=== PATIENT | male | born 1995 | race Caucasian/White ===

== ENCOUNTER 2023-11-12 08:06 | Day surgery (SDC) | payer OTHER ==
[~2023-11-12] VITALS: Ht 180.3 cm; Wt 84.8 kg
[2023-11-12 08:47] VITALS: O2SAT 97
[2023-11-12] MEDS ORDERED: MEPERIDINE 100 MG INJ. 100 MG/ML VIAL ONE (09:16)
[2023-11-12] MEDS ORDERED: MIDAZOLAM HCL 5 MG/5 ML VIAL ONE (09:16)
[2023-11-12] MEDS ORDERED: DIPHENHYDRAMINE INJ 50 MG/ML VIAL ONE (09:30)
[2023-11-12 14:50] VITALS: BP_SYST 107; PULSE 76; RESP 12
== END 2023-11-12 10:54 | disposition home or self-care (01) ==
LOC: SDS 08:06 → SMU 08:11 → SDS 10:54
PROVIDERS: ATTEND Internal Medicine Gastroenterology
DX: K62.5 Hemorrhage of anus and rectum (principal); K63.89 Other specified diseases of intestine; K64.8 Other hemorrhoids; R59.0 Localized enlarged lymph nodes
CPT/HCPCS: 45380; 88305; 99152; 99153; G0378; J1200; J2250; J2175